=== PATIENT | male | born 1965 | race Caucasian/White ===

== ENCOUNTER 2019-09-12 23:04 | IRF | payer OTHER, SELFPAY ==
--- NOTE | 2019-09-12 21:48 | ADMGEN ---
This patient, Andrea Soto, was admitted to [facility] Room 223-01. Patient/family oriented to hospital policies and general routines including ID bracelet, bed and alarms, visiting hours, pain management, procedures, bathroom and other care routines, personal items, smoking policy, room service/diet, and visiting hours. Valuables list has been completed. Information on how to activate the Rapid Response Team has been discussed. Patient/Family are encouraged to report perceived risks to care and to ask questions if they do not understand what they are told or what they should do.
[2019-09-12 22:00] VITALS: BP 119/57; PULSE 74; RESP 18; TEMP 36.9; O2SAT 94
[2019-09-12 22:23] VITALS: PULSE 74; RESP 18; O2SAT 94
[2019-09-13 05:58] LABS: Basophils Absolute Auto 0.2 K/mm3 (0.0-0.1); Basophils Percent Auto 1.7 % (0.2-1.2); Eosinophils Absolute Auto 0.5 K/mm3 (0-0.3); Eosinophils Percent Auto 4.4 % (0-4.4); Hematocrit 40.8 % (42.0-52.0); Hemoglobin 13.7 g/dL (14.0-18.0); Immature Granulocyte Absolute 0.09 K/mm3 (0.00-0.031); Immature Granulocyte Percent A 0.8 % (0-0.5); Lymphocytes Percent Auto 26.8 % (18.3-44.2); Mean Corpuscular HGB Conc 33.6 g/dl (32-36); Mean Corpuscular Hemoglobin 34.5 pg (26-34); Mean Corpuscular Volume 102.8 fl (80-100); Mean Platelet Volume 10.7 fl (7.4-10.4); Monocytes Absolute Auto 1.4 K/mm3 (0.1-0.6); Monocytes Percent Auto 12.9 % (2.6-8.5); Neutrophils Percent Auto 53.4 % (45.5-73.1); Platelet Count Result 577 k/mm3 (150-375); Red Blood Count 3.97 M/mm3 (4.6-6.20); White Blood Count 11.2 K/mm3 (4.5-10.0)
[2019-09-13 06:00] VITALS: BP 133/72; PULSE 81; RESP 18; TEMP 36.7; O2SAT 96
[2019-09-13 06:04] LABS: Blood Urea Nitrogen 15 mg/dL (9-20); Calcium 9.6 mg/dL (8.4-10.2); Carbon Dioxide 29 mmol/L (22-30); Chloride 96 mmol/L (98-107); Cholesterol 173 mg/dL (0-200); Estimated Glomerular Filt Rate > 60; Glucose 101 mg/dL (75-110); HDL Direct 33 mg/dL; Potassium 4.5 mmol/L (3.4-5.0); Sodium 138 mmol/L (137-145); Triglycerides 301 mg/dL (<150)
[2019-09-13 06:15] LABS: LDL Cholesterol Direct 82 mg/dL
[2019-09-13] MEDS: SODIUM CHLORIDE 1 GM TABLET PO ×3 (08:35→17:39)
[2019-09-13] MEDS: AMLODIPINE BESYLATE 5 MG TABLET PO (08:35)
[2019-09-13] MEDS: ASPIRIN 81 MG CHEWABLE TABLET PO (08:35)
[2019-09-13] MEDS: lisinopriL 20 MG TABLET PO (08:36)
[2019-09-13 10:00] VITALS: PULSE 96; RESP 17; O2SAT 97
--- NOTE | 2019-09-13 10:21 | WPDREHABHP ---
H&P: HPI History of Present Illness Chief complaint: A-com Aneurysm Rupture Narrative: Andrea Soto is a 54 year old male with brain dysfunction ,non traumatic with A-com aeurysm rupture Review of Systems Review of Systems All systems reviewed & are unremarkable except as noted in HPI and below Cardiovascular Comments: hypertension anxiety ,chronic pain,and splenectomy [facility] Past Medical History Medical History (Updated 09/13/19 @ 10:38 by Enrique Copeland MD) Acute aspiration pneumonia Social History Social History Smoking packs per day: 0.5 Smoking cigarettes per day: 10.0 Years smoked: 35 Smoking pack-years: 17.50 Smoking status: Current every day smoker Tobacco type: cigarettes Second hand tobacco smoke exposure: Yes Alcohol intake: former Drinks per week: 1 Substance use: never Substance use type: does not use Gender identity (if verbalized by the patient): Male Spiritual care concerns: No Agree to blood products: No Meds Home Medications and Allergies Home Medications Medication Instructions Recorded Confirmed Type albuterol sulfate [ProAir HFA] See Rx Instructions .ROUTE 09/12/19 09/12/19 History .COMPLEX PRN MDD q4hrs alprazolam [Xanax] 0.5 mg PO Q8-10H PRN 09/12/19 09/12/19 History amlodipine [Norvasc] 5 mg PO DAILY 09/12/19 09/12/19 History amlodipine [Norvasc] 10 mg HS 09/12/19 09/12/19 History aspirin 81 mg PO DAILY 09/12/19 09/12/19 History cyclobenzaprine 10 mg PO TID PRN 09/12/19 09/12/19 History lisinopril [Prinivil] 20 mg PO DAILY 09/12/19 09/12/19 History oxycodone-acetaminophen 1 tablet PO Q6-8H PRN 09/12/19 09/12/19 History sodium chloride 1 g PO TIDWM 09/12/19 09/12/19 History trazodone 50 mg PO HS PRN 09/12/19 09/12/19 History Allergies Allergy/AdvReac Type Severity Reaction Status Date / Time penicillin G Allergy Unknown Verified 08/02/17 22:09 Penicillins Allergy Unknown Verified 12/21/16 10:47 Sulfa (Sulfonamide Allergy Unknown Verified 08/02/17 22:09 Antibiotics) PCN Allergy Intermediate Uncoded 01/02/17 13:40 Vital Signs Vital Signs - 24 hr 09/12/19 22:00 09/12/19 22:23 09/13/19 06:00 Temperature 36.9 C 36.7 C Pulse Rate 74 74 81 Respiratory Rate 18 18 18 Blood Pressure 119/57 L 133/72 Pulse Oximetry 94 94 96 Exam Narrative Exam Narrative: awake alert coperative Const General: cooperative, comfortable, no acute distress, well developed and well groomed Nutritional Appearance: average body habitus Orientation/consciousness: oriented to person, oriented to place, oriented to time and patient oriented x3 Limitations: no limitations HENMT Head: normal to inspection and normocephalic Ears: hearing grossly normal bilaterally General nose exam: Normal external nose present, Normal nares present and No nasal discharge present Face and sinus: normal facial exam and face symmetric Mouth: Yes Normal oral and palatal mucosa present, Yes lip normal and Yes tongue normal Throat: uvula midline Eyes General: appearance normal, both eyes and all related structures Visual Renee: normal visual renee by confrontation Alignment and Position: alignment normal Periorbital: periorbital findings normal Pupils: Equal, round and reactive pupils present and Pupils normal by confrontation EOM: EOMs intact bilaterally Direct Ophthalmoscopy: no photophobia Neck Neck: full ROM and no lymphadenopathy Resp Effort & Inspection: normal respiratory effort and able to speak in complete sentences Auscultation: clear to auscultation bilaterally Cardio Palpation: normal PMI Rate: regular rate Rhythm: regular rhythm GI Inspection: normal to inspection Auscultation: normal bowel sounds Rectal Exam: deferred Male General Exam: Yes normal external exam Skin General skin exam: no rashes or lesions noted Neuro General: patient oriented x3, gait normal, moves all extremities, no meningeal signs and CN's II-XI intact bilaterally (c/o horizontal visual f
[2019-09-13 13:43] VITALS: BMI 27.6
[2019-09-13 14:00] VITALS: BP 132/67; PULSE 96; RESP 17; TEMP 36.3; O2SAT 97
--- NOTE | 2019-09-13 15:57 | REHAB_ITS ---
DATE OF SERVICE: 09/13/2019 This is a 54 years old, right-handed male, has been admitted to the rehab floor of [facility] on 09/12/2019. He was examined by myself on 09/13/2019 at 9:30 a.m. ADMISSION REHAB DIAGNOSIS: Brain dysfunction, nontraumatic, with etiological diagnosis of aortic, anterior communicating artery aneurysmal rupture. HISTORY OF PRESENT ILLNESS: A 54 years old right-handed male with ongoing history of. 1. Hypertension. 2. Anxiety. 3. Chronic pain. 4. Splenectomy done in 2016. Presented to [facility] on 08/26/2019 subsequent to a fall and obviously confused in addition to being hypertensive. Evaluation documented subarachnoid hemorrhage for which he was transferred to [facility] same day for further evaluation. On route, he became unresponsive, requiring intubation by the EMS. Subsequently, Dr. Bertrand performed a cerebral angiogram, which demonstrated rupture of anterior communicating artery aneurysm, which was coiled, coil embolization was performed during the angiogram. He was extubated on 08/27/2019 in the evening and placed on facemask. 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 He was noted to have intermittent temperature spikes. His sputum culture on 08/29/2019 came back positive for H flu. He was treated with a 7-day course of cefepime and Flagyl for presumed aspiration pneumonia. Repeat sputum culture on 09/01/2019 revealed no growth. He was extubated successfully on 09/03/2019. His leukocytosis was down trending from 17,000 on 09/07 to 12.9 subsequently. He was notedly afebrile with no symptoms of current infection and was also on room air, but he required intermittent nicardipine drip throughout his ICU stay for the control of hypertension, which was subsequently controlled with lisinopril and they were allowing permissive hypertension with a systolic blood pressure goal of less than 180, but he will continue on oral nifedipine 60 mg q.4 hours for vasospasm prophylaxis. He completed Keppra for seizure prophylaxis, aspirin was continued, and he is on subcutaneous heparin for DVT prophylaxis. He is on a regular cardiac diet. Therapy was initiated at the Acute Care Facility, and the patient was transferred to us from [facility] on 09/13/2019. SURGERY OR FALL: The patient has had major surgeries in the last 100 days prior to admission. He had a fall in the past year. He has had no falls with injury in the past year. PAST MEDICAL HISTORY: As mentioned above, particularly hypertension, anxiety, and chronic pain. PAST SURGICAL HISTORY: Splenectomy. SOCIAL HISTORY: The patient lives with parents in a one-level home with 2 steps to enter. He was completely independent prior with no assistive device. He had a fall and he had an aneurysm coiling this admission. PRIOR LEVEL OF FUNCTION: Eating was independent, oral care was independent, toileting hygiene was independent, showering, bathing was independent, upper body was independent and so as the lower body. Footwear was independent. Rolling left and right independent. He was independent sit to lying, lying to sitting, sit to stand, bed to chair transfer, toilet transfer. He was previously ambulating without assistive device for 999 feet and he was able to complete 5 stairs independently. CURRENT LEVEL OF FUNCTION: The patient is independent in eating, required setup for cleanup assistance for the oral care, partial, moderate assistance for the toileting hygiene, shower and bathing, upper body. Lower body required supervision or touching assistance. Footwear, he required supervision or touching assistance same as the right, rolling left and right, sit to lying,
[2019-09-13] MEDS: CYCLOBENZAPRINE HCL 10 MG TABLET PO (17:47)
[2019-09-13] MEDS: AMLODIPINE BESYLATE 5 MG TABLET 10 MG BY MOUTH (20:27)
[2019-09-13 22:00] VITALS: BP 127/60; PULSE 90; RESP 18; TEMP 36.1; O2SAT 98
[2019-09-14 05:10] VITALS: BP 104/54; PULSE 75; RESP 22; TEMP 36.2; O2SAT 96
[2019-09-14] MEDS: SODIUM CHLORIDE 1 GM TABLET PO ×3 (08:28→16:58)
[2019-09-14] MEDS: ASPIRIN 81 MG CHEWABLE TABLET PO (08:28)
[2019-09-14] MEDS: lisinopriL 20 MG TABLET PO (08:28)
[2019-09-14] MEDS: AMLODIPINE BESYLATE 5 MG TABLET PO (08:28)
[2019-09-14] MEDS: CYCLOBENZAPRINE HCL 10 MG TABLET PO ×2 (08:32→22:21)
[2019-09-14] MEDS: ALPRAZOLAM 0.5 MG TABLET PO ×2 (08:32→22:21)
[2019-09-14 14:00] VITALS: BP 136/77; PULSE 93; RESP 18; TEMP 36.6; O2SAT 92
[2019-09-14] MEDS: AZITHROMYCIN 250 MG TABLET PO (15:09)
[2019-09-14] MEDS: AMLODIPINE BESYLATE 5 MG TABLET 10 MG BY MOUTH (20:38)
[2019-09-14 22:00] VITALS: BP 114/65; PULSE 67; RESP 18; TEMP 36.4; O2SAT 98
[2019-09-15 05:16] LABS: Blood Urea Nitrogen 16 mg/dL (9-20); Calcium 8.9 mg/dL (8.4-10.2); Carbon Dioxide 30 mmol/L (22-30); Chloride 101 mmol/L (98-107); Estimated CRCL calculation 139 ml/min; Estimated Glomerular Filt Rate > 60; Glucose 103 mg/dL (75-110); Sodium 139 mmol/L (137-145)
[2019-09-15 06:00] VITALS: BP 119/53; PULSE 73; RESP 17; TEMP 36.4; O2SAT 96
[2019-09-15] MEDS: lisinopriL 20 MG TABLET PO (08:42)
[2019-09-15] MEDS: AMLODIPINE BESYLATE 5 MG TABLET PO (08:42)
[2019-09-15] MEDS: ASPIRIN 81 MG CHEWABLE TABLET PO (08:42)
[2019-09-15] MEDS: AZITHROMYCIN 250 MG TABLET PO (08:42)
--- NOTE | 2019-09-15 09:30 | PCOTNOTE ---
Attempted OT session with patient, but patient refused, stating he wasn't going to do anything until he sees a doctor about his right eye issue. Patient stated he has blood to the right of his iris and is having loss of visual field across the center of his vision. Therapist explained benefits and need for therapy, but patient continued to refuse all bathing, dressing, transfers, functional activities and exercises. Nursing notified.
--- NOTE | 2019-09-15 10:25 | RPD ---
INDIVIDUALIZED PLAN OF CARE FOR Andrea Soto Brief Synthesis of Pre-Admission Screen, Post-Admission Evaluation and Therapy Evaluations: The patient presents to rehab with A-com aneurysm rupture. Comorbidities include subarachnoid hemorrhage, status post aneurysm coiling, organic brain syndrome, hypertension, acute hypoxic respiratory failure, aspiration pneumonia, acute blood loss anemia, influenza, fever, acute pain, short term memory impairment. The patient requires physician services for neurology services, medical oversight, and coordination of care. The patient needs physician monitoring and treatment of anemia, perioperative blood loss, monitoring for adverse reactions to new medications, monitoring of infection, pain control, and hypertension. The patient requires nursing services for frequent neuro checks, anticoagulation therapy, medication management and education, pressure relief and skin care management, monitoring of labs, bowel and bladder training, and fall/safety precautions. Deficits include:ADLs, Balance, Cognition, Endurance, Mobility, Pain Management, ROM, Safety,Strength, Transfers Psychologist Personnel/Case Management for: Discharge Planning and Patient/Family Counseling Physical Therapy: 5 days per week for 90 minutes. Treatments may include: Therapeutic Exercise, Gait Training, Neuromuscular Re-education, Transfer Training, Community Reintegration, Bed Mobility, Patient/Family Education, Wheelchair Mobility Group Therapy/Concurrent Therapy Rationales: -Improve attention span during functional activities in a distracted environment. -Enhance problem solving and/or adequate judgment skills during functional activities in a distracted environment. -Promote increased safety awareness in a distracted environment to reduce fall risk with functional tasks, transfers, and ambulation to allow a more safe, self-sufficient return to the home environment. -Improve dynamic balance skills to promote safety and independence with functional activities in a distracted environment for maximum gain. Occupational Therapy: 5 days per week for 90 minutes. Treatments may include: Therapeutic Exercise, Therapeutic Activity, Cognitive Training, Self-Care Transfer Training, Community Reintegration, Home Management, Patient/Family Education, Wheelchair Mobility Training, Energy Conservation Training Group Therapy/Concurrent Therapy Rationales: -Allow therapist to observe and teach generalization and carry-over of skills learned in individual therapy. -Enhance problem solving and sequencing skills during therapeutic activities in a distracted environment. -Promote increased safety awareness in a realistic setting to reduce fall risk with functional tasks due to visual and verbal distractions. -Increase functional level with ADLs, ADL transfers and use of adaptive equipment through therapeutic activities with others while promoting safety to allow a more safe, self-sufficient return home. Medical Prognosis: Good Anticipated Length of Stay: 10 days Rehab Goals: Eating Goal: 06-Independent Oral Hygiene Goal: 06-Independent Toileting Hygiene Goal: 06-Independent Shower/Bathe Self Goal: 06-Independent Upper Body Dressing Goal: 06-Independent Lower Body Dressing Goal: 06-Independent Putting On/Taking Off Footwear Goal: 06-Independent Rolling Left and Right Goal: 06-Independent Sit to Lying Goal: 06-Independent Lying to Sitting on Side of Bed Goal: 06-Independent Sit to Stand Goal: 06-Independent Chair/Rgi-ea-Zjlhr Transfer Goal: 06-Independent Toilet Transfer Goal: 06-Independent Car Transfer Goal: 06-Independent Walk 10' Goal: 06-Independent Walk 50' with Two Turns Goal: 06-Independent Walk 150' Goal: 06-Independent Walk 10' on Uneven Surface Goal: 06-Independent 1 Step (Curb) Goal: 06-Independent 4 Steps Goal: 06-Independent 12 Steps Goal Score: 06-Independent Picking Up Object Goal: 06-Independent Wheel 50' with Two Turns Score: 09-Not Applicab
--- NOTE | 2019-09-15 10:42 | PCPTNOTE ---
Attempted PT session with patient, but patient refused, stating he wasn't going to do any therapy until he sees a doctor about his right eye issue. Patient stated he has blood in the right corner of his eye and is having loss of visual field across the center of his vision and dizziness with any movement. Therapist explained benefits and need for therapy, but patient continued to refuse all transfers, functional activities, gait, and exercises. Notified Huber
--- NOTE | 2019-09-15 11:43 | WPDNEURORHBP ---
Subjective Date/time seen: c/o no vision in right eye09/15/19 11:43 Review of Systems Review of Systems: All systems reviewed & are unremarkable except as noted in HPI and below Functional Status Ambulation Ability Ability to Ambulate 10 Feet: Contact Guard Ability to Ambulate 50 Feet With 2 Turns: Contact Guard Ability to Ambulate 150 Feet: Contact Guard Ambulation Assistive Devices: None Transfers Ability Ability to Transfer In/Out of Chair: Independent Exam Narrative: Exam Narrative: o/e PRRLE,NOGUN PUPIL,SEES a band in front of right eye Neck: Neck: full ROM Cardio: Rate: regular rate Rhythm: regular rhythm GI: Auscultation: normal bowel sounds Skin: General skin exam: no rashes or lesions noted Neuro: General: oriented to person, oriented to place, oriented to time, patient oriented x3, gait normal, tone normal and moves all extremities Cranial nerves: Yes Equal, round and reactive pupils present, Yes Normal accommodation reflex present, Yes Nystagmus not present, Yes Normal facial strength present, Yes facial symmetry, Yes Midline tongue present, Yes Normal gag reflex present, Yes Normal hearing present, Yes Ability to bilaterally rotate head present and Yes Ability to bilaterally elevate shoulders present Cognition (Neuro): normal cognition Speech: normal speech Gait exam (Neuro): Normal gait present Objective Data Vital Signs Vital Signs: Vital Signs - 24 hr 09/14/19 14:00 09/14/19 22:00 09/15/19 06:00 Temperature 36.6 C 36.4 C 36.4 C L Pulse Rate 93 67 73 Respiratory Rate 18 18 17 Blood Pressure 136/77 114/65 119/53 L Pulse Oximetry 92 98 96 Intake/Output Intake/Output: Intake & Output 09/12/19 09/13/19 09/14/19 09/15/19 23:59 23:59 23:59 23:59 Intake Total 1080 600 480 Balance 1080 600 480 Meds/Results Medications: Active Medications Generic Name Dose Route Start Last Admin Trade Name Freq PRN Reason Stop Dose Admin Albuterol 2 puff 09/12/19 23:08 Proventil Hfa INHALATION Q6HRT PRN Shortness Of Breath Alprazolam 0.5 mg 09/12/19 23:08 09/14/19 22:21 Xanax PO 0.5 mg Q8H PRN Administration Anxiety Amlodipine Besylate 5 mg 09/13/19 09:00 09/15/19 08:42 Norvasc PO 5 mg DAILY JET Administration Amlodipine Besylate 10 mg 09/13/19 21:00 09/14/19 20:38 Norvasc BY MOUTH 10 mg HS JET Administration Aspirin 81 mg 09/13/19 08:00 09/15/19 08:42 Aspirin Chewable PO 81 mg DAILY@0800 [facility] Administration Azithromycin 250 mg 09/14/19 09:00 09/15/19 08:42 Zithromax Tablet PO 09/18/19 09:01 250 mg DAILY JET Administration Cyclobenzaprine HCl 10 mg 09/12/19 23:08 09/14/19 22:21 Flexeril PO 10 mg TID PRN Administration Spasms Lisinopril 20 mg 09/13/19 09:00 09/15/19 08:42 Prinivil PO 20 mg DAILY JET Administration Oxycodone/Acetaminophen 1 tablet 09/12/19 23:08 09/15/19 05:36 Percocet 5-325 Mg PO 1 tablet Q6-8H PRN Administration Pain Rated 7-10 Sodium Chloride 1 gm 09/13/19 08:00 09/15/19 08:41 Sodium Chloride PO 1 gm TIDWM JET Administration Trazodone HCl 50 mg 09/12/19 23:08 Desyrel PO HS PRN Sleep Labs Labs: Laboratory Results - last 24 hr 09/15/19 04:44 Sodium 139 Potassium 4.0 Chloride 101 Carbon Dioxide 30 BUN 16 Creatinine 0.60 L Estim Creat Clear Calc 139 Estimated GFR > 60 Glucose 103 Calcium 8.9 Progress Note: A&P Assessment and Plan (1) Visual blurriness: Code(s): H53.8 - Other visual disturbances Status: Acute Additional Plan get a mri of brain optic nerve and orbit
--- NOTE | 2019-09-15 13:04 | PCPTNOTE ---
Attempted to see patient for PT, however patient refused. Patient reports he is waiting to go down for a MRI on his eye and does not want to do therapy until that is done.
--- NOTE | 2019-09-15 13:30 | PCOTNOTE ---
Attempted OT session with patient, but patient refused, stating he wasn't going to do anything physical, like bending over or lifting until he has his right eye examined as he doesn't want to cause any harm. Therapist explained the reason for his stay and benefits of therapy, but patient still refused, stating word doesn't travel very fast around here, but I'm not doing anything until I get my eye examined. Patient refused transfers, ADLs, exercise and other functional activities.
[2019-09-15 14:00] VITALS: BP 126/68; PULSE 78; RESP 18; TEMP 36.3; O2SAT 97
[2019-09-15 14:32] VITALS: BMI 27.6
--- NOTE | 2019-09-15 15:29 | PCNSR ---
On 09/15/19, the student, Carola James, provided care and completed [facility] documentation on this patient. I have reviewed the student's documentation and agree with the findings.
--- NOTE | 2019-09-15 19:41 | PC.NURSE ---
1152: Left unit to smoke. Attempted to reeducate r/e unit protocol regarding not leaving unit due to safety concerns. Verbalized understanding. 1300 Left voice mail with LISA Christianson at [facility] Neu[facility] regarding obtaining records for aneurysm coil model and serial number to help expedite new order for MRI of brain and MRI of orbits, face and neck due to c/o reduced vision in right eye. Awaiting return call. Patient aware. Verbalizes understanding. 1345: Left unit to smoke. Attempted to reeducate on unit guidelines regarding leaving unit. Verbalized understanding. 1530: Left another voice mail with LISA Christianson, at [facility]. Patient made aware of second attempt to obtain records. 1645: Spoke with LISA Christianson at [facility], regarding model and serial number of coil to determine compatability with our MRI machine. Meghan refers me to Maura Benedict, nurse with Dr. Brannon Calvert, neurosurgeon, who performed the placement of coil. Voice mail indicates the office closed at 1630. Patient aware. Verbalizes understanding. 1820: Dr. Copeland made aware of patient request to discharge AMA. Patient states I am leaving and going to an opthamologist at [facility]. 1835: AMA paper signed per patient request. Risks of leaving against medical advice, including possible , explained to patient. Also explained that no prescriptions or equipment will be provided in the event of leaving AMA. Verbalized understanding and opts to sign AMA paper. Transported to [facility] to meet ride that patient states is waiting for him at entrance.
[2019-09-15] MEDS: AMLODIPINE BESYLATE 5 MG TABLET 10 MG BY MOUTH (20:56)
[2019-09-15] MEDS: SODIUM CHLORIDE 1 GM TABLET PO (20:57)
[2019-09-15] MEDS: ALPRAZOLAM 0.5 MG TABLET PO (20:57)
[2019-09-15] MEDS: CYCLOBENZAPRINE HCL 10 MG TABLET PO (20:59)
[2019-09-15 22:00] VITALS: BP 119/72; PULSE 86; RESP 18; TEMP 36.8; O2SAT 97
--- NOTE | 2019-09-16 03:26 | PC.NURSE ---
09/11/191944 pt returned to floor accompanied by staff member that had been waiting in front lobby with pt while he was waiting for ride. Pt ride did not come and Pt unable to find any one to come and get him. Pt denning signing AMA paper although signed paper in chart. Pt readmitted to his room. Sister in [place] called on status of pt. Sister stated she has received phone calls about him from others and wanted to know if he was safe and not out in cold with no where to go. Explained he was still pt and was safe and could not give medical info to her d/t HIPPA laws. Call transfered into pts room. Pt talked to sister and used several cures words with her. Pt stated he did not understand how things had esculated to this point
[2019-09-16 06:00] VITALS: BP 103/62; PULSE 87; RESP 18; TEMP 37; O2SAT 95
[2019-09-16] MEDS: AMLODIPINE BESYLATE 5 MG TABLET PO (08:35)
[2019-09-16] MEDS: AZITHROMYCIN 250 MG TABLET PO (08:39)
[2019-09-16] MEDS: SODIUM CHLORIDE 1 GM TABLET PO (08:39)
[2019-09-16] MEDS: ASPIRIN 81 MG CHEWABLE TABLET PO (08:39)
[2019-09-16] MEDS: lisinopriL 20 MG TABLET PO (08:39)
--- NOTE | 2019-09-16 14:08 | WPDNEURORHBP ---
Subjective Date/time seen: 09/16/19 14:08 Interval history: this 54-year-old gentleman was admitted after suffering from ruptured anterior communicating artery aneurysm and was quite I will did at [facility] yesterday he complained of blurriness of the vision in the right eye which to him seem like worse than it was when he is was at [facility] and the my partner was planning to get an MRI of the brain done however there is a concern whether not his quite I will like is compatible with the unit we have patient was quite upset and not only upset but he went outside to smoke against the permission by the staff and which he accepted during the team conference this morning and the wanted to leave against medical advice however was ready to cooperate earlier this morning while we are attempting to find out whether [facility] neuro safety net maker will be able to see him as he claimed that he was in touch with some nurse who is a friend of his and will make arrangement for him to be seen but we will have to confirm the appointment before we let him go for that particular appointment Patient denies any headache nausea vomiting chest pain shortness of breath or any further change in his mental status he cell complaints certain issues and claims that he did not realize what he was signing with early stool or not I am not quite clear this is about the paper he has signed leaving against medical advice that would have been yesterday Review of Systems Review of Systems: All systems reviewed & are unremarkable except as noted in HPI and below Functional Status Ambulation Ability Ability to Ambulate 10 Feet: Standby Assistance Ability to Ambulate 50 Feet With 2 Turns: Standby Assistance Ability to Ambulate 150 Feet: Standby Assistance Ambulation Assistive Devices: None Transfers Ability Ability to Transfer In/Out of Chair: Standby Assistance Exam Const: General: comfortable and no acute distress HENMT: General nose exam: Normal nares present Mouth: Yes moist mucous membranes Eyes: General: appearance normal, both eyes and all related structures Neck: Neck: supple and no JVD Resp: Effort & Inspection: normal respiratory effort Auscultation: clear to auscultation bilaterally Cardio: Rate: regular rate Rhythm: regular rhythm GI: GI Palp: Yes Soft to palpation Auscultation: normal bowel sounds Skin: General skin exam: normal color and no rashes or lesions noted Neuro: Other: patient is awake and alert sitting in the wheelchair quite talkative and trying to have his own ways and blaming others. While this examiner did not want to be is mental about his motivation factors he does have decrease insight to his problem and issues he has decreased short-term memory and at times deliberately was not forthcoming giving the telephone number of the person he spoke with at [facility] he does have higher level balance problem and he was made aware of it otherwise no lateralizing focal motor deficit his vision in the right eye only is of what he subjectively calls a doctor line in the middle of his central vision the examiner does not see much as for as the eye exam is concerned which is compromised Extrem: General: normal to inspection Objective Data Vital Signs Vital Signs: Vital Signs - 24 hr 09/15/19 22:00 09/16/19 06:00 Temperature 36.8 C 37.0 C Pulse Rate 86 87 Respiratory Rate 18 18 Blood Pressure 119/72 103/62 Pulse Oximetry 97 95 Intake/Output Intake/Output: Intake & Output 09/13/19 09/14/19 09/15/19 09/16/19 23:59 23:59 23:59 23:59 Intake Total 1080 600 960 240 Balance 1080 600 960 240 Meds/Results Medications: Active Medications Generic Name Dose Route Start Last Admin Trade Name Freq PRN Reason Stop Dose Admin Albuterol 2 puff 09/12/19 23:08 Proventil Hfa INHALATION Q6HRT PRN Shortness Of Breath Alprazolam 0.5 mg
--- NOTE | 2019-09-16 14:50 | PC.NURSE ---
[id number] Called to room by staff to speak with patient. Patient voices concern that his vision in right eye has decreased since admission. Patient stated that he is signing out against medical advice. Patient had reported some blurriness in eye at time of arrival to [facility] as reported to staff and Dr Copeland. Patient stated that he discussed this again with Dr Copeland on Friday 09/15. MRIs were ordered on 09/15 but awaiting correct detailed information regarding aneurysm coil equipment that was implanted at time of surgery prior to safe completion of ordered MRIS here. Multiple attempts have been made by staff and this RN to obtain detailed information. Patient now states that he wants to leave and get this checked out . Patient alert and oriented x 3 with sister at bedside. I contacted Dr Luna's office at [facility] and relayed request for information to Farooq -complaint evaluation officer, requesting further detailed information- advising her that we have only been able to obtain brief op notes from procedure and not detailed information. Advised her that patient is now reporting 10% vision loss in right eye - as per his estimate. She spoke with Dr Landaverde and returned call advising that MRI could be safely completed here of Dr Landaverde's recommendation to send patient to [facility] ED for evaluation, reporting that the neuroosurgeon resident will see patient there. Farooq is notifying [facility] ED that patient will be enroute for evaluation. I advised patient of Dr Landaverde's recommendation and advised that we would transfer via ambulance to ED. Patient does not agree to that plan - states I am not waiting - I am leaving. My sister is taking me. Sister remained at bedside and encouraged patient to go via ambulation so that he might return to us for additional rehab therapy after evaluation by neurosurgeon resident and discussion with Dr Landaverde. Patient refused. Sister agreed to take patient via personal ambulance. AMA form read to patient and he verbalized understanding of risks of leaving against medical advice including - patient voiced understanding and AMA form signed and witnessed. Dr Finn notified of patients concerns and recommendations of Dr Landaverde - he was agreeable with plan. Patient left AMA per wheelchair escorted to lobby by [facility] staff. Dr Finn notified that patient left AMA.
--- NOTE | 2019-09-16 15:43 | PCPTNOTE ---
Patient was not seen for physical therapy session this afternoon secondary to refusal and handing personal issues.
--- NOTE | 2019-09-16 15:44 | PC.NURSE ---
1000 Rehab team conference meeting with patient. Patient stated that the previous day staff had tried to obtain information for his aneurysm coil model and serial number in order to obtain an order for MRI of brain due to reduced vision in right eye (see previous note). Patient was informed that the information had not been obtained to date due to [facility] Neurological surgery Department not returning the day's previous phone call. Patient stated that he was told yesterday by [facility] that he could come anytime to get an MRI by just walking in. Dr. Finn informed patient that we wanted to do things the right way and set up an appointment for him to be taken to [facility] (or transported by ambulance) on a date with a secured time to perform the MRI. Patient was informed that usually a hospital will not allow someone to simply walk in for an MRI and there may be some waiting time and paperwork that will need to be done in order to be compliant. Patient understood and agreed. Patient gave me the number of his neuro opthalmologist who practices at [facility] at [phone] to schedule an MRI or any procedural processes that would be necessary. 1145 Conference meeting ended. 1200 I called the number the patient had furnished for his neuro opthalmologist and found there to be approximately 15 doctors and to push a certain number for specific doctor. I ended the phone call and asked the patient the name of his neuro opthamologist . The patient stated he did not know his name but he had a friend at the hospital that could find out. I informed the patient to let me know as soon as he knew his/the doctor's name so I could get the ball rolling. 1300 I entered the patient's room and asked him if he had any information for me and he stated he was waiting for a return call from a nurse he knew. Patient had a visitor in his room who stated she was his neighbor. 1330 I entered the patient's room and noticed he was on the phone. He did stated he wanted his pain medication for a headache. 1345 I entered the patient's room to administer his pain med and he was still on the phone. He put his caller on hold and took his pain medication. No other communication. 1400 Patient's visitor confronted me in the hallway and stated the patient was packed up and ready to leave. I entered patient's room and noted he was dressed and packed. I asked him what would be the reason for him to leave as we were still waiting to get his MRI scheduled and he stated [facility] told him he would have to wait at least 12 to 24 hours before they would schedule an MRI due to not having the necessary paperwork. The patient stated it would be easier for him to just get in the car and go straight to [facility] and they said would take him immediately for an MRI. At this point I called Sada Bates, Nurser Textile Finisher, into patient's room. 2202 Patient left AMA.
--- NOTE | 2019-09-20 16:11 | DS_ITS ---
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 HISTORY OF PRESENT ILLNESS: This 54-year-old right-handed male with ongoing history of hypertension, anxiety, chronic pain, and splenectomy done in 2016, presented initially to [facility] on 08/26/2019, subsequent to fall with obvious confusion in addition to being hypertensive. On evaluation, he was found to have a subarachnoid hemorrhage for which he was transferred to [facility] same day for further evaluation. En route, he became unresponsive, requiring intubation by EMS. Subsequently, he underwent a cerebral angiogram, which documented rupture of anterior communicating artery aneurysm, which was coiled and coil embolization was performed during the angiogram. He was extubated on 08/27/2019 in the evening and placed on face mask. On 08/28/2019, he developed worsening mental status, requiring increasing oxygen and was reintubated clinical director on 08/29/2019. He was noted to have intermittent temperature spikes. His sputum culture on 08/29/2019 came back positive for H flu. He was treated with a seven-day course of cefepime and Flagyl for presumed aspiration pneumonia. Repeat sputum culture on 09/01/2019 revealed no growth. He was extubated successfully on 09/03/2019. CBC leukocytosis came down on 09/07 to 12.9. Subsequently, he was notedly afebrile with no symptoms of current infection and was placed on room air, but he required intermittent nicardipine drip throughout his ICU stay for the control of the hypertension, which was subsequently controlled with lisinopril and they were allowing permissive hypertension with a systolic blood pressure goal of less than 180, but will continue on oral nifedipine 60 mg q.4 hours for vasospasm prophylaxis. He completed Keppra for seizure prophylaxis. Aspirin was continued and he was on subcutaneous heparin for DVT prophylaxis and with a regular cardiac diet. Therapy was initiated at the acute care facility and the patient was transferred to from [facility] on 09/13/2019. The patient has had major surgery in the last 100 days prior to admission, no fall in the last year as well. LEVEL OF FUNCTION AT THE TIME OF ADMISSION: The patient was found to be independent in eating, requiring setup for the oral hygiene, supervision for toileting and bathing, setup for the upper body dressing, supervision for lower body dressing, setup for the footwear. He was independent for rolling in bed, sit to lying, lying to sitting and requiring setup for the sit to stand. He required supervision for chair transfer, toilet transfer, walking 10 feet, 50 feet with 2 turns, walking 150 feet, walking 10 feet on uneven surfaces, curb or step, 4 steps, 12 step, required setup for the car transfer and picking up objects. Wheelchair obviously was not applicable. ANTICIPATED REHAB GOALS: Were to make him independent in all the modalities. HOSPITAL COURSE: During the hospitalization, no other consultants were involved, but throughout the hospitalization, the patient was extremely concerned about his vision in the right eye, which was examined on several occasions. His pupils were round, regular, reacting to light equally. There was no Bre pupil. His extraocular movements were completely normal with no nystagmus. He was complaining of lack of horizontal vision left in the right eye, but not any other visual stimuli. He was advised that he will need to have the downs which can be done in the lap cutter truer operator's office and when he gets discharged from here, he can always get that done. He was insistent to go for the field examination as soon as possible, even though we told him that it can be easily done onc
== END 2019-09-16 14:50 | disposition left against medical advice (07) | DRG 950 ==
PROVIDERS: Admitting Provider Psychiatry & Neurology Neurology; PCP Family Medicine; Visit Provider Psychiatry & Neurology Neurology
DX: Z48.812 Encounter for surgical aftercare following surgery on the circulatory system (principal); I69.011 Memory deficit following nontraumatic subarachnoid hemorrhage; H53.8 Other visual disturbances; D50.0 Iron deficiency anemia secondary to blood loss (chronic); F41.9 Anxiety disorder, unspecified; F17.210 Nicotine dependence, cigarettes, uncomplicated; F09 Unspecified mental disorder due to known physiological condition; G89.29 Other chronic pain; I10 Essential (primary) hypertension; Z79.82 Long term (current) use of aspirin; Z90.81 Acquired absence of spleen
CPT/HCPCS: 36415; 80048; 80061; 85025; 87081; 97110; 97116; 97162; 97165; 97530; 97535; A9270

== ENCOUNTER → 2020-08-28 07:48 | Outpatient (CLI) | payer OTHER, SELFPAY ==
[2020-08-29 00:19] LABS: SARS-CoV-2 RNA PCR Negative
== END ==
PROVIDERS: PCP Family Medicine; Visit Provider Family Medicine
DX: Z20.822 Contact with and (suspected) exposure to COVID-19 (principal)
CPT/HCPCS: C9803; U0003; U0005